=== PATIENT | male | born 1965 | race Caucasian/White ===

== ENCOUNTER 2017-01-16 18:11 | Inpatient (IN) | payer BC ==
[~2017-01-16] VITALS: Ht 188 cm; Wt 130.5 kg
[2017-01-16 18:20] VITALS: BP 133/61; PULSE 74; RESP 18; TEMP 98.9; O2SAT 96
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
[2017-01-16] MEDS ORDERED: TETANUS/DIPHTHERIA TOXOID ADULT 0.5 ML VIAL IM ONE (18:30)
[2017-01-16] MEDS ORDERED: ZOCO20TA PO (20:14)
[2017-01-16] MEDS ORDERED: ASPI-110 PO (20:14)
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
[2017-01-16] MEDS ORDERED: SODIUM CHLOR 0.9% 1000 ML INJ 1,000 ML IV ONE (20:30)
[2017-01-16] MEDS ORDERED: ONDANSETRON HCL 4 MG/2 ML VIAL IV PUSH ONE (20:30)
[2017-01-16] MEDS ORDERED: SODIUM CHLOR 0.9% 1000 ML INJ 1,000 ML IV SCH (20:34)
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
[2017-01-16] MEDS ORDERED: THIAMINE INJ 100 MG in SODIUM CHLORIDE 0.9% INJ 100 ML IV ONE (20:45)
[2017-01-16] MEDS ORDERED: SODIUM CHLORIDE 0.9% FLUSH 10 ML FLUSH IVF PRN (20:45)
[2017-01-16] MEDS ORDERED: HYDROmorphone HCL PF 1 MG/ML VIAL IV PRN (21:00)
[2017-01-16] MEDS ORDERED: NALOXONE HCL 0.4 MG/ML AMP IV PRN (21:00)
[2017-01-16] MEDS: SODIUM CHLORIDE 0.9% FLUSH 5 ML FLUSH IVF SCH (21:00)
[2017-01-16] MEDS ORDERED: SODIUM CHLORIDE 0.9% FLUSH 5 ML FLUSH IVF PRN (21:00)
[2017-01-16] MEDS: D5-NS + KCL 20 MEQ INJ 1,000 ML IV SCH (21:10)
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
[2017-01-16 21:26] LABS: AUTOMATED NEUTROPHIL # 12.9 TH/MM3 (1.8-7.7); BASOPHIL % 0.2 % (0.0-2.0); EOSINOPHIL % 0.3 % (0.0-4.0); HEMATOCRIT 40.9 % (39.0-51.0); HEMO FLAGS DIFF FINAL; LYMPH % 11.5 % (9.0-44.0); LYMPHOCYTE # 1.8 TH/MM3 (1.0-4.8); MEAN CELL VOLUME 92.2 FL (80.0-100.0); MEAN CORPUSCULAR HEMOGLOBIN 31.1 PG (27.0-34.0); MEAN CORPUSCULAR HGB CONC 33.7 % (32.0-36.0); MONO % 4.7 % (0.0-8.0); NEUT % 83.3 % (16.0-70.0); PLATELET COUNT 228 TH/MM3 (150-450); RED BLOOD COUNT 4.43 MIL/MM3 (4.50-5.90); RED CELL DISTRIBUTION WIDTH 13.1 % (11.6-17.2); WHITE BLOOD COUNT 15.5 TH/MM3 (4.0-11.0)
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
[2017-01-16 21:38] LABS: APTT (PATIENT) 23.7 SEC (24.3-30.1); PROTHROMBIN TIME - PATIENT 10.7 SEC (9.8-11.6)
[2017-01-16] MEDS ORDERED: ACETAMINOPHEN 500 MG CPLT PO ONE (21:45)
[2017-01-16 22:00] VITALS: BP 138/68; PULSE 73; RESP 14; TEMP 98; O2SAT 95
[2017-01-16 22:01] LABS: ANION GAP 10 MEQ/L (5-15); AST (GOT) 22 U/L (15-37); BICARBONATE 25.8 MEQ/L (21.0-32.0); BLOOD UREA NITROGEN 11 MG/DL (7-18); CHLORIDE 107 MEQ/L (98-107); GLOMERULAR FILTRATION RATE 79 ML/MIN (>89); POTASSIUM 3.7 MEQ/L (3.5-5.1); SODIUM (NA) 143 MEQ/L (136-145)
[2017-01-16 22:04] LABS: ALKALINE PHOSPHATASE 74 U/L (45-117); ALT (GPT) 43 U/L (12-78); TOTAL BILIRUBIN ADULT 0.4 MG/DL (0.2-1.0)
[2017-01-16 22:14] VITALS: O2SAT 100
[2017-01-16] MEDS: DOCUSATE SODIUM 100 MG CAP PO SCH (22:25)
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
[2017-01-16] MEDS: levETIRAcetam 500 MG TAB PO SCH (23:32)
[2017-01-16 23:37] VITALS: PULSE 83
[2017-01-17] VITALS (11 sets, daily range): BP systolic 126–156; BP diastolic 63–93; PULSE 58–95; RESP 14–32; TEMP 96–98.6; O2SAT 92–99
[2017-01-17 02:14] LABS: APTT (PATIENT) 25.7 SEC (24.3-30.1); PROTHROMBIN TIME - PATIENT 11.1 SEC (9.8-11.6)
[2017-01-17 02:27] LABS: BICARBONATE 24.2 MEQ/L (21.0-32.0); POTASSIUM 3.9 MEQ/L (3.5-5.1)
[2017-01-17 02:45] LABS: AUTOMATED NEUTROPHIL # 10.1 TH/MM3 (1.8-7.7); BASOPHIL % 0.1 % (0.0-2.0); HEMATOCRIT 38.5 % (39.0-51.0); HEMO FLAGS DIFF FINAL; LYMPHOCYTE # 0.9 TH/MM3 (1.0-4.8); MEAN CORPUSCULAR HEMOGLOBIN 30.8 PG (27.0-34.0); MEAN CORPUSCULAR HGB CONC 33.4 % (32.0-36.0); MONO % 4.6 % (0.0-8.0); NEUT % 87.3 % (16.0-70.0); PLATELET COUNT 200 TH/MM3 (150-450); RED BLOOD COUNT 4.18 MIL/MM3 (4.50-5.90); RED CELL DISTRIBUTION WIDTH 13.1 % (11.6-17.2); WHITE BLOOD COUNT 11.6 TH/MM3 (4.0-11.0)
[2017-01-17] MEDS: D5-NS + KCL 20 MEQ INJ 1,000 ML IV SCH (08:00)
[2017-01-17 08:19] LABS: CALCIUM-PROTEIN CORRECTED 8.4 MG/DL (8.5-10.1)
[2017-01-17] MEDS: DOCUSATE SODIUM 100 MG CAP PO SCH ×2 (09:00→21:08)
[2017-01-17] MEDS: SODIUM CHLORIDE 0.9% FLUSH 5 ML FLUSH IVF SCH ×2 (09:00→21:00)
[2017-01-17] MEDS: levETIRAcetam 500 MG TAB PO SCH ×2 (09:34→21:08)
[2017-01-17] MEDS: ACETAMINOPHEN/HYDROcodone 325 MG/5 MG TAB PO PRN ×2 (09:34→14:12)
[2017-01-17] MEDS: PANTOPRAZOLE SOD 40 MG DELAYED RELEASE TAB PO SCH (09:34)
--- NOTE | 2017-01-17 11:01 | RADRPT ---
EXAM DATE/TIME: 01/17/2017 10:37 [place] COMPARISON: CT BRAIN W/O CONTRAST, January 16, 2017, 20:21. INDICATIONS : Evaluate hemorrhage. RADIATION DOSE: 44.25 CTDIvol (mGy) MEDICAL HISTORY : None SURGICAL HISTORY : None. ENCOUNTER: Initial ACUITY: 1 day PAIN SCALE: 5/10 LOCATION: cranial TECHNIQUE: Multiple contiguous axial images were obtained of the head. Using automated exposure control and adj ustment of the mA and/or kV according to patient size, radiation dose was kept as low as reasonably a chievable to obtain optimal diagnostic quality images. FINDINGS: CEREBRUM: There is persistent subarachnoid hemorrhage in the right sylvian fissure and anterior right fundal re gion. These appear less prominent on the current exam. New areas of hemorrhage are not seen. The vent ricles are normal for age. No evidence of midline shift, mass lesion, or acute infarction. No extra -axial fluid collections are seen. POSTERIOR FOSSA: The cerebellum and brainstem are intact. The 4th ventricle is midline. The cerebellopontine angle i s unremarkable. EXTRACRANIAL: The visualized portion of the orbits is intact. The there is left frontal, bilateral ethmoid, bilater al sphenoid and bilateral maxillary sinus disease. SKULL: There is a nondisplaced fracture seen just to the right of midline extending through the superior rig ht parietal bone into the inferior right occipital bone The calvaria is intact. No evidence of skull fracture. There is soft tissue swelling of the posterior medial parietal scalp. There is minimal air seen in the left cavernous sinus region. More air is seen on the prior exam. The source for this air /basal skull fracture is not clearly identified. The air has clearly diminished from the prior exam. CONCLUSION: Persistent right sylvian fissure and frontal subarachnoid hemorrhage. New areas of hemorrhage are not seen. There is a nondisplaced posterior skull fracture involving the right parietal and occipital b ones. Josue Ocampo MD on January 17, 2017 at 10:48 Board Certified Radiologist. This report was verified electronically.
--- NOTE | 2017-01-17 13:39 | EKG ---
Date Performed: 01/16/2017 Time Performed: 22:19:15 PTAGE: 51 years EKG: Sinus rhythm NORMAL ECG NO PREVIOUS TRACING DOCTOR: Jay Moreno Interpretating Date/Time 01/17/2017 13:33:50
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
[2017-01-17] MEDS: ONDANSETRON HCL 4 MG/2 ML VIAL IV PRN ×2 (16:38→21:08)
[2017-01-18 04:00] VITALS: BP 142/81; PULSE 50; RESP 22; TEMP 98.2; O2SAT 96
[2017-01-18 08:41] VITALS: BP 136/70; PULSE 50; RESP 20; TEMP 96.5; O2SAT 97
[2017-01-18] MEDS ORDERED: ATORVASTATIN 10 MG TAB PO SCH (09:00)
[2017-01-18] MEDS: PANTOPRAZOLE SOD 40 MG DELAYED RELEASE TAB PO SCH (10:33)
[2017-01-18] MEDS: levETIRAcetam 500 MG TAB PO SCH (10:33)
[2017-01-18] MEDS: DOCUSATE SODIUM 100 MG CAP PO SCH (10:33)
[2017-01-18] MEDS: SODIUM CHLORIDE 0.9% FLUSH 5 ML FLUSH IVF SCH (10:37)
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
[2017-01-18 12:00] VITALS: BP 125/59; PULSE 45; RESP 20; TEMP 97.5; O2SAT 95
[2017-01-18 17:13] VITALS: BP 158/81; PULSE 49; RESP 20; TEMP 97.6; O2SAT 95
[2017-01-18] MEDS ORDERED: HYDR-3535 PO (19:46)
[2017-01-18] MEDS ORDERED: ZOFR4TAB PO (19:46)
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
[2017-01-18] MEDS: ACETAMINOPHEN/HYDROcodone 325 MG/5 MG TAB PO PRN (20:13)
[2017-01-18] MEDS: ONDANSETRON HCL 4 MG/2 ML VIAL IV PRN (20:13)
[2017-01-18 20:21] VITALS: BP 118/64; PULSE 47; RESP 16; TEMP 98.1; O2SAT 94
== END 2017-01-18 20:54 | disposition home or self-care (01) | DRG 87 ==
LOC: NEPD 18:11 → NEDA 21:03 → N03B 23:27 → N05B 01-17 15:37
PROVIDERS: ADMIT Neurological Surgery; ATTEND Neurological Surgery
DX: S06.6X1A Traumatic subarachnoid hemorrhage with loss of consciousness of 30 minutes or less, initial encounter (principal); E78.00 Pure hypercholesterolemia, unspecified; S02.0XXA Fracture of vault of skull, initial encounter for closed fracture; S02.11GA Other fracture of occiput, right side, initial encounter for closed fracture; E78.5 Hyperlipidemia, unspecified; Y93.55 Activity, bike riding; V18.4XXA Pedal cycle driver injured in noncollision transport accident in traffic accident, initial encounter
CPT/HCPCS: 70450; 71010; 72125; 80048; 80053; 84155; 85025; 85610; 85730; 86850; 86900; 86901; 87641; 90471; 90714; 93005; 94150; 96365; 96375; J2405; J3411; J3480; J7030